=== PATIENT | male | born 1995 | race Caucasian/White ===

== ENCOUNTER 2018-09-24 05:26 | Emergency (ER) | payer OTHER, SELFPAY ==
--- NOTE | 2018-09-24 05:34 | ED_ITS ---
HPI - Seizure General Chief Complaint: Seizure Stated Complaint: Seizure Time Seen by Provider: 09/24/18 05:30 Source: patient and EMS Mode of arrival: EMS History of Present Illness HPI Narrative: Patient is a 22-year-old male brought in by after having what appears to be a seizure. EMS reports that he was sitting in a car with his friend at the [employer]'s parking lot when he suddenly became unresponsive and started shaking. Was drooling. No reported loss of bowel or bladder. The patient's friend told EMS that the patient did have a history of seizures. Apparently had a seizure yesterday and was seen at an outside facility. He also stated the patient is taking medications for seizures but I do not know of his medications were. For the time EMS arrived they stated that there was no seizure-like activity present. His blood sugar was greater than 100. EMS reports that since their arrival they feel that the patient has become more more responsive. Related Data Home Medications Medication Instructions Recorded Confirmed Aptiom 09/24/18 Vimpat 09/24/18 Review of Systems Constitutional Denies headache(s) ENT Ears, Nose, Mouth, and Throat: Denies headache(s) Cardiovascular Denies chest pain and Denies dyspnea Respiratory Denies dyspnea Gastrointestinal Gastrointestinal: Denies abdominal pain Musculoskeletal Denies myalgias and Denies arthralgias Integumentary/Breasts Denies rash Neurologic Denies headache(s) and Reports seizure-like activity Hematologic/Lymphatic Denies easy bleeding and Denies easy bruising [facility] Medical History Seizures (Acute) Social History lives independently: Yes Smoking Status: Former smoker Social History lives independently: Yes Smoking Status: Former smoker Exam Initial Vital Signs Initial Vital Signs: Vital Signs Temperature 97.7 F 09/24/18 05:36 Pulse Rate 73 09/24/18 05:36 Respiratory Rate 18 09/24/18 05:36 Blood Pressure 143/87 H 09/24/18 05:36 Pulse Oximetry 100 09/24/18 05:36 Const General: comfortable, well developed, well groomed and No acute distress Orientation: alert, awake, oriented to person, oriented to place and confused (About situation) Resp Effort & Inspection: normal respiratory effort Auscultation: clear to auscultation bilaterally Cardio Rate: regular rate Rhythm: regular rhythm GI Inspection: non-distended Skin Lesions: no lesions Rashes: no rashes Neuro General: alert and awake Speech: speech normal Motor: muscle tone normal throughout Sensory Exam: no sensory deficits noted Extrem General: capillary refill normal Psych Appearance: grossly normal and well kempt Course Vital Signs - 8 hr 09/24/18 05:36 Temperature 97.7 F Pulse Rate 73 Respiratory Rate 18 Blood Pressure 143/87 H Pulse Oximetry 100 MDM - Seizure MDM Narrative Medical decision making narrative: Patient continued to become more coherent here in the emergency department. He was able to tell us his 2 medications he was taking. He did state that he has frequent seizures. He does see a neurologist and a ?specialist? back at home for his ?epilepsy ?states that he is taking his medicines. He did take his morning medication here in the ER. Patient stated he was feeling fine was back to normal. He does have a friend with him here in the emergency department his groin to drive him home. Will hold on further workup for now. Patient was given return precautions and follow-up instructions. Discharge Plan Departure Patient Disposition: Home Clinical Impression: Seizure Instructions: DI for Seizure Disorder -- Adult Activity Restrictions/Additional Instructions: Continue to take all of your medications as directed. Be sure to contact your primary care doctor for a follow-up. You are not to drive until you were cleared by either your primary doctor or urine neurologist. Return to the emergency department for any new or worsening symptoms Prescriptions: No Action Aptiom RF: 0 Vimpat RF: 0
[2018-09-24 05:36] VITALS: BP 143/87; PULSE 73; RESP 18; TEMP 36.5; O2SAT 100
[2018-09-24 06:08] VITALS: BP 135/78; PULSE 72; RESP 18; O2SAT 100
--- NOTE | 2018-09-24 06:10 | PC.NURSE ---
He had no seizure here,has long history of partial seizures.Is alert and oriented to place,person,month and day.Gait steady,denies pain.He and his friend gilmar'who he left with are here for a friends wedding today.He is complient with his seizure meds.He will follow up with his neurologist when he returns home to [place] soon.
== END 2018-09-24 06:10 | disposition home or self-care (01) ==
PROVIDERS: Emergency Provider Emergency Medicine
DX: R56.9 Unspecified convulsions (principal)
CPT/HCPCS: 99282; 99283; 99291